=== PATIENT | female | born 1990 | race Two or more races ===

== ENCOUNTER 2017-08-24 18:15 | Emergency (ER) | payer MEDICAID ==
[~2017-08-24] VITALS: Ht 154.9 cm; Wt 111.1 kg
[~2017-08-24 18:15] MED LIST: KEFLEX500 MG ORAL
[2017-08-24 18:33] VITALS: BP 114/70
[2017-08-24] MEDS ORDERED: Ketorolac 30mg Inj IV ONE (18:45)
[2017-08-24 19:14] LABS: BASOPHILS % (AUTO) 0.9 % (0.0-2.0); EOSINOPHILS % (AUTO) 3.7 % (0.0-3.0); HEMATOCRIT 41.3 % (37.0-47.0); HEMOGLOBIN 13.7 G/DL (12.0-16.0); LYMPHOCYTES % (AUTO) 28.2 % (20.0-45.0); MEAN CORPUSCULAR VOLUME 79 FL (80-99); MONOCYTES % (AUTO) 6.3 % (1.0-10.0); NEUTROPHILS % (AUTO) 60.9 % (45.0-75.0); PLATELET COUNT 248 K/UL (150-450); WHITE BLOOD COUNT 8.2 K/UL (4.8-10.8)
[2017-08-24 19:35] VITALS: BP 115/72
[2017-08-24 19:46] LABS: ANION GAP 9 mmol/L (5-15); BLOOD UREA NITROGEN 15 mg/dL (7-18); CALCIUM 8.7 MG/DL (8.5-10.1); CARBON DIOXIDE 24 MMOL/L (21-32); CHLORIDE 105 MMOL/L (98-107); CREATININE 0.7 MG/DL (0.55-1.30); POTASSIUM 4.1 MMOL/L (3.5-5.1); SODIUM 138 MMOL/L (136-145)
[2017-08-24 19:58] LABS: ALANINE AMINOTRANSFERASE 15 U/L (12-78); ALBUMIN 3.3 G/DL (3.4-5.0); ALBUMIN/GLOBULIN RATIO 0.8 (1.0-2.7); ALKALINE PHOSPHATASE 102 U/L (46-116); ASPARTATE AMINO TRANSFERASE 20 U/L (15-37); BILIRUBIN,TOTAL 0.2 MG/DL (0.2-1.0); CKMB 0.9 NG/ML (0.0-3.6); CREATINE KINASE 97 U/L (26-308)
[2017-08-24] MEDS ORDERED: IBUPROFEN600 MG ORAL (20:56)
[2017-08-24 21:00] VITALS: BP_SYST 109; BP_SYST 112; BP_SYST 127; BP_DIAS 66; BP_DIAS 76; BP_DIAS 84
[2017-08-24 21:15] VITALS: BP 112/66
--- NOTE | 2017-08-24 21:55 | Emergency Room Report ---
History of Present Illness General Chief Complaint: Chest Pain Source: Patient Present Illness HPI Patient is a 27-year-old female who presented after increased chest discomfort. Patient noted have increased pain to her right shoulder pain is sharp in nature. Was worse with movement over the shoulder. She denies any fever. She denies any recent trauma. She denies any recent leg pain or swelling. Allergies: Coded Allergies: EGG (Verified Allergy, Unknown, 08/24/17) Patient History Past Medical History: see triage record Last Menstrual Period: 08/03/2017 Now: No Reviewed Nursing Documentation: PMH: Agreed, PSxH: Agreed Nursing Documentation-PMH Past Medical History: No History, Except For History Of Psychiatric Problem: Yes - anxiety Review of Systems All Other Systems: negative except mentioned in HPI Physical Exam Vital Signs Date Time Temp Pulse Resp B/P (MAP) Pulse Ox O2 Delivery O2 Flow Rate FiO2 08/24/17 18:23 97.8 81 16 99/64 96 Room Air 97.9 Sp02 EP Interpretation: reviewed, normal General Appearance: normal inspection, well appearing, no apparent distress, alert, GCS 15, non-toxic Head: atraumatic ENT: normal ENT inspection, hearing grossly normal, normal voice Neck: normal inspection, full range of motion, supple, no bony tend Respiratory: normal inspection, lungs clear, normal breath sounds, no respiratory distress, no retraction, no wheezing, other - right side chest wall tenderness. Brisk pulses Cardiovascular #1: regular rate, rhythm, no edema Gastrointestinal: normal inspection, normal bowel sounds, non tender, soft, no guarding, no hernia Genitourinary: no CVA tenderness Musculoskeletal: normal inspection, back normal, normal range of motion Neurologic: normal inspection, alert, responsive, speech normal Psychiatric: normal inspection, judgement/insight normal, mood/affect normal Skin: normal inspection, normal color, no rash Medical Decision Making Diagnostic Impression: Primary Impression: Chest wall pain Additional Impression: Acute shoulder pain ER Course Patient presented for chest pain. Differential diagnosis included but was not limited to acute coronary syndrome, pulmonary embolism, pneumonia, aortic dissection, shingles, pneumothorax, aortic dissection, esophageal rupture, pericarditis. Because of complexity of patient's case laboratory testing and imaging studies were ordered. EKG interpretation normal sinus rhythm without acute ST or T wave changes. CT the chest was performed which showed no evidence of the aortic dissection or pulmonary embolism. The patient given Toradol for pain. The patient was in place sling.Patient was noted to have brisk pulses to her extremities. The patient's upper extremity. Neurologically intact. The patient had good fine motor movement and normal cap refill. Patient was noted to have no pronator drift. The patient was advised to recheck with her primary care physician as she may need some further workup including MRI. The patient is advised to follow up with primary care doctor in 1-2 days. Patient is advised to return if any worsening condition or if any changes in status that are concerning. This report is dictated with [employer] bench technician software which may occasionally lead to discrepancies related to use of this software. Labs Test 08/24/17 18:50 White Blood Count 8.2 K/UL (4.8-10.8) Red Blood Count 5.20 M/UL (4.20-5.40) Hemoglobin 13.7 G/DL (12.0-16.0) Hematocrit 41.3 % (37.0-47.0) Mean Corpuscular Volume 79 FL (80-99) Mean Corpuscular Hemoglobin 26.4 PG (27.0-31.0) Mean Corpuscular Hemoglobin Concent 33.2 G/DL (32.0-36.0) Red Cell Distribution Width 13.0 % (11.6-14.8) Platelet Count 248 K/UL (150-450) Mean Platelet Volume 6.6 FL (6.5-10.1) Neutrophils (%) (Auto) 60.9 % (45.0-75.0) Lymphocytes (%) (Auto) 28.2 % (20.0-45.0) Monocytes (%) (Auto) 6.3 % (1.0-10.0) Eosinophils (%) (Auto) 3.7 % (0.0-3.0) Basophils (%) (Auto) 0.9 % (0.0-2.0) D-Dimer 0.40 mg/L FEU (0.00-0.49) Urine HCG, Qualitative Negative Sodium Level 138 MMOL/L (136-145) Potassium Level 4.1 MMOL/L (3.5-5.1) Chloride Level 105 MMOL/L (98-107) Carbon Dioxide Level 24 MMOL/L (21-32) Anion Gap 9 mmol/L (5-15) Blood Urea Nitrogen 15 mg/dL (7-18) Creatinine 0.7 MG/DL (0.55-1.30) Estimat Glomerular Filtration Rate > 60 mL/min (>60) Glucose Level 101 MG/DL (74-106) Calcium Level 8.7 MG/DL (8.5-10.1) Total Bilirubin 0.2 MG/DL (0.2-1.0) Aspartate Amino Transf (AST/SGOT) 20 U/L (15-37) Alanine Aminotransferase (ALT/SGPT) 15 U/L (12-78) Alkaline Phosphatase 102 U/L (46-116) Total Creatine Kinase 97 U/L (26-308) Creatine Kinase MB 0.9 NG/ML (0.0-3.6) Creatine Kinase MB Relative Index 0.9 Troponin I 0.000 ng/mL (0.000-0.056) Total Protein 7.7 G/DL (6.4-8.2) Albumin 3.3 G/DL (3.4-5.0) Globulin 4.4 g/dL Albumin/Globulin Ratio 0.8 (1.0-2.7) Lipase 77 U/L (73-393) EKG Diagnostic Results Rate: normal Rhythm: NSR ST Segments: no acute changes ASA given to the pt in ED: No Rhythm Strip Diag. Results EP Interpretation: yes Rhythm: NSR, no PVC's, no ectopy Last Vital Signs Date Time Temp Pulse Resp B/P (MAP) Pulse Ox O2 Delivery O2 Flow Rate FiO2 08/24/17 21:15 97.6 75 16 112/66 100 Room Air 97.6 Status: improved Disposition: HOME, SELF-CARE Condition: Improved Scripts Ibuprofen* (MOTRIN*) 600 Mg Tablet 600 MG ORAL Q8H Y for For Pain, #30 TAB 0 Refills Prov: Erick Lauren 08/24/17 Departure Forms: Return to Work Return to Work in (Days): 2 Patient Instructions: Nonspecific Chest Pain Erick Lauren Aug 24, 2017 21:55
--- NOTE | 2017-08-25 08:14 | Diagnostic Imaging Report ---
Indication: Chest pain, shortness of breath Technique: CT angiography performed utilizing thin section spiral CT and bolus contrast injection. Axial, coronal, and sagittal images were generated. Maximum intensity projections (MIPs) were obtained in the coronal and sagittal planes. Dose: Total Dose Length Product - DLP [address] Dose Index - CTDIvol(s) 13.62, 63.11, 42.7 to mGy. Automated exposure control was utilized for dose reduction. Findings: The heart is normal in size. The mediastinum is unremarkable. The aorta is normal in caliber. There is no evidence of aortic dissection. There are no pulmonary emboli. No significant pulmonary infiltrates are identified. The pleural space is normal. The right hemidiaphragm is elevated. The patient has taken a poor inspiration. Impression: Elevated right hemidiaphragm. Poor inspiration. No evidence of pulmonary emboli or aortic dissection. Otherwise negative. The above report is concordant with preliminary reading by [employer] . The CT scanner at [facility] is accredited by the [employer] and the scans are performed using protocols designed to limit radiation exposure to as low as reasonably achievable to attain images of sufficient resolution adequate for diagnostic evaluation.
--- NOTE | 2017-08-26 16:27 | Cardiology Report ---
APPROVED REPORT EKG Measurement Heart [id number] Normal sinus rhythm Normal ECG
== END 2017-08-24 21:15 | disposition home or self-care (01) ==
LOC: EMR 19:00
DX: R07.89 Other chest pain (principal); M25.511 Pain in right shoulder; Z91.012 Allergy to eggs; F41.9 Anxiety disorder, unspecified
CPT/HCPCS: 36415; 71275; 80053; 81025; 82550; 82553; 83690; 84484; 85025; 85379; 93005; 96374; 99284; J1885; Q9967

== ENCOUNTER 2017-11-03 13:48 | Emergency (ER) | payer MEDICAID ==
[~2017-11-03] VITALS: Ht 152.4 cm; Wt 108.9 kg
[~2017-11-03 13:48] MED LIST changes: +IBUPROFEN600 MG ORAL
[2017-11-03 14:09] VITALS: BP 110/65
[2017-11-03] MEDS ORDERED: Acetaminophen 500mg (ES) tab ORAL ONE (14:30)
[2017-11-03] MEDS ORDERED: Lidocaine 2% Visc 15ml soln ORAL ONE (14:30)
[2017-11-03] MEDS ORDERED: TYLENOL EXTRA500 MG ORAL (14:35)
[2017-11-03] MEDS ORDERED: PROMETHAZINE-C118 M1 ORAL (14:35)
[2017-11-03] MEDS ORDERED: PSEUDOEPHEDRINE30 MG PO (14:35)
--- NOTE | 2017-11-03 14:35 | Emergency Room Report ---
History of Present Illness General Chief Complaint: Flu Like Symptoms Source: Patient Present Illness HPI 27-year-old female patient presents ER complaining of cough and sore throat for the past 2 days. Patient reports cough is with green sputum, denies hemoptysis. Patient reports fever during this time. Patient denies fever acutely in ER. Patient reports taking DayQuil and NyQuil. she reports cough is worse night, reports reproducible and intermittent chest tightness during this time. Patient also complains of earache on the left side. Patient reports feeling ear fullness. Patient denies nausea, vomiting, difficulty breathing. Patient also complains of diarrhea during this time. Patient reports no recent travel outside the [place] or contacts with similar symptoms. Patient reports no blood in stool. Patient reports no dysuria, hematuria. Patient reports no recent periods of immobilization, no recent surgeries. Patient denies being on control medication. denies calf Pain. denies history of asthma or cardiovascular disease. Denies history of PE. Allergies: Coded Allergies: EGG (Verified Allergy, Unknown, 08/24/17) Patient History Past Medical History: see triage record Last Menstrual Period: 10/23/2017 Reviewed Nursing Documentation: PMH: Agreed; PSxH: Agreed Nursing Documentation-PMH Past Medical History: No Stated History Review of Systems All Other Systems: negative except mentioned in HPI Physical Exam Vital Signs Date Time Temp Pulse Resp B/P (MAP) Pulse Ox O2 Delivery O2 Flow Rate FiO2 11/03/17 14:09 98.3 104 18 110/65 96 Room Air 98.2 Sp02 EP Interpretation: reviewed, normal General Appearance: well appearing, no apparent distress, alert, GCS 15, non- toxic Head: normocephalic, atraumatic, other - no mastoid swelling or TTP ENT: hearing grossly normal, normal pharynx, no angioedema, normal voice, TMs + canals normal, uvula midline, moist mucus membranes, other - no pharyngeal erythema, no tonsillar exudates Neck: full range of motion Respiratory: lungs clear, normal breath sounds, no rhonchi, no respiratory distress, no accessory muscle use, no wheezing, speaking full sentences Cardiovascular #1: regular rate, rhythm, no edema Gastrointestinal: non tender, soft, no mass, non-distended, no guarding, no rebound Musculoskeletal: back normal, digits/nails normal, gait/station normal, normal range of motion, non-tender Neurologic: alert, oriented x3, responsive, motor strength/tone normal, sensory intact Psychiatric: mood/affect normal Skin: no rash Lymphatic: no adenopathy Medical Decision Making PA Attestation Dr. Huff is my supervising Physician whom patient management has been discussed with. Diagnostic Impression: Primary Impression: Upper respiratory infection Additional Impression: Diarrhea ER Course Pt presents to ED c/o cough and sore throat. DDX considered but are not limited to influenza, viral URI, pneumonia, strep throat, rhinitis, sinusitis, otitis media. Low suspicion for PE per Well's criteria. Low suspicion for pneumonia, will not order CXR at this time. VITAL SIGNS are WNL, patient is afebrile. Pulse mildly elevated to 104, will monitor. On PE, chest pain likely musculoskeletal in nature secondary to cough due to reproducibility of pain, does not require cardiac workup at this time. Patient instructed to take NSAIDs as needed for pain symptoms. Ordered medication. ER COURSE: Lungs clear to auscultation, no wheezes, rhonci or rales. Likely viral etiology of symptoms. Sore throat likely secondary to cough, ear fullness likely secondary to cough. Will provide treatment. diarrhea likely viral in etiology. patient has moist mucous membranes, no signs of dehydration. BRAT diet: banana, rice, apple sauce, toast. No blood, no recent travel. Stay hydrated. Does not required treatment with antibiotics at this time. Symptomatic treatment. Followup with PCP for further treatment and/or referral as needed. work note provided for 2 days. patient reports feeling better, nontoxic appearing, ambulating independently. ER precautions given. DISCHARGE: -Rx given for Tylenol/Acetaminophen for fever and pain. -Rx given for Promethazine with codeine syrup for cough sx. Checked [facility]ES report , 3 day supply of [place] given one month ago, ok to give meds today. -Rx provided for Sudafed for ear pain At this time pt is stable for d/c to home. Patient is resting comfortably, in no acute distress, nontoxic appearing, talking and laughing. Patient to take medications as instructed Will provide with patient care instructions and any necessary prescriptions. Care plan and follow-up instructions provided. Patient instructed to follow-up with primary care provider in 3 - 5 days. Patient questions asked and answered. Patient reports understanding and agreement to treatment plan. ER precautions given. Patient instructed to return to ER immediately for any new or worsening of symptoms including but not limited to increasing SOB, persistent fever, intractable vomiting. - Please note that this Emergency Department Report was dictated using [employer] sourcer technology software, occasionally this can lead to erroneous entry secondary to interpretation by the dictation equipment. Last Vital Signs Date Time Temp Pulse Resp B/P (MAP) Pulse Ox O2 Delivery O2 Flow Rate FiO2 11/03/17 14:09 98.3 104 18 110/65 96 Room Air 98.2 Disposition: HOME, SELF-CARE Condition: Stable Scripts Pseudoephedrine Hcl* (SUDAFED*) 30 Mg Tablet 30 MG PO Q6H, #24 TAB Prov: Richie Davison 11/03/17 Acetaminophen* (TYLENOL EXTRA STRENGTH*) 500 Mg Tablet 500 MG ORAL Q8H PRN for Prn Headache/Temp > 101, #30 TAB 0 Refills Prov: Richie Davison 11/03/17 Codeine/Promethazine Hcl* (PROMETHAZINE-CODEINE SYRUP*) 118 Ml Syrup 5 ML ORAL Q6H PRN for For Cough, #118 ML 0 Refills Prov: Richie Davison 11/03/17 Patient Instructions: Diarrhea, Adult, [id number], Upper Respiratory Infection, Adult, [id number] Additional Instructions: Followup with primary care provider in 3 -5 days. BRAT diet: bananas, rice, apple sauce, toast. Take medications as directed. Patient questions asked and answered. ER precautions given, patient instructed to return to ER immediately for any new or worsening of symptoms cutting but not limited to chest pain, shortness of breath, intractable vomiting. Richie Davison November 03, 2017 14:35
[2017-11-03 14:49] VITALS: BP 110/65
== END 2017-11-03 14:49 | disposition home or self-care (01) ==
LOC: EMR 14:35
DX: J06.9 Acute upper respiratory infection, unspecified (principal); R19.7 Diarrhea, unspecified; Z91.012 Allergy to eggs
CPT/HCPCS: 99284

== ENCOUNTER 2018-05-21 21:53 | Emergency (ER) | payer MEDICAID ==
[~2018-05-21] VITALS: Ht 154.9 cm; Wt 112.5 kg
[~2018-05-21 21:53] MED LIST changes: +PROMETHAZINE-C118 M1 ORAL; +PSEUDOEPHEDRINE30 MG PO; +TYLENOL EXTRA500 MG ORAL
[2018-05-21] MEDS ORDERED: Lidocaine 2% Visc 15ml soln ORAL ONE (23:15)
[2018-05-21] MEDS ORDERED: Dicyclomine HCl 10mg/5ml oral soln ORAL ONE (23:15)
[2018-05-22 00:05] LABS: BASOPHILS % (AUTO) 0.8 % (0.0-2.0); EOSINOPHILS % (AUTO) 2.6 % (0.0-3.0); HEMATOCRIT 43.3 % (37.0-47.0); HEMOGLOBIN 14.6 G/DL (12.0-16.0); LYMPHOCYTES % (AUTO) 17.4 % (20.0-45.0); MEAN CORPUSCULAR VOLUME 77 FL (80-99); MONOCYTES % (AUTO) 4.6 % (1.0-10.0); NEUTROPHILS % (AUTO) 74.6 % (45.0-75.0); PLATELET COUNT 262 K/UL (150-450); RED CELL DISTRIBUTION WIDTH 12.8 % (11.6-14.8)
[2018-05-22 00:16] LABS: APPEARANCE,URINE CLOUDY; BILIRUBIN, URINE NEGATIVE (NEGATIVE); GLUCOSE, URINE (UA) NEGATIVE (NEGATIVE); KETONES,URINE NEGATIVE (NEGATIVE); LEUKOCYTE ESTERASE ,URINE 3+ (NEGATIVE); NITRITE,URINE NEGATIVE (NEGATIVE); PH,URINE 5 (4.5-8.0); PROTEIN,URINE 1+ (NEGATIVE); UROBILINOGEN,URINE 1 MG/DL (0.0-1.0)
[2018-05-22 00:20] LABS: ANION GAP 13 mmol/L (5-15); BLOOD UREA NITROGEN 15 mg/dL (7-18); CARBON DIOXIDE 22 MMOL/L (21-32); CHLORIDE 102 MMOL/L (98-107); CREATININE 0.7 MG/DL (0.55-1.30); POTASSIUM 3.8 MMOL/L (3.5-5.1); SODIUM 137 MMOL/L (136-145)
[2018-05-22 00:26] LABS: ALANINE AMINOTRANSFERASE 16 U/L (12-78); ALBUMIN 3.4 G/DL (3.4-5.0); ALBUMIN/GLOBULIN RATIO 0.6 (1.0-2.7); ALKALINE PHOSPHATASE 107 U/L (46-116); ASPARTATE AMINO TRANSFERASE 18 U/L (15-37); BILIRUBIN,TOTAL 0.3 MG/DL (0.2-1.0)
[2018-05-22 00:39] LABS: COLOR,URINE YELLOW
[2018-05-22] MEDS ORDERED: Ketorolac 30mg Inj IV ONE (00:45)
[2018-05-22] MEDS ORDERED: CEPHALEXIN500 MG ORAL (01:06)
[2018-05-22] MEDS ORDERED: IBUPROFEN600 MG ORAL (01:06)
[2018-05-22] MEDS ORDERED: cefTRIAXone 1 GM in NS 55 ML IVPB ONE (01:15)
[2018-05-22 01:54] VITALS: BP 116/69
--- NOTE | 2018-05-22 05:40 | Emergency Room Report ---
History of Present Illness General Chief Complaint: Nausea, Vomiting, and Diarrhea Source: Patient Present Illness HPI Patient is a 27-year-old female who presented after increased the nausea and vomiting as well as increased dysuria. Patient gradual onset of symptoms. She reports having increased frequency of urination with small amounts of urine. She was having increased diarrhea. She denies any fever. She reports having superpubic abdominal pain. Allergies: Coded Allergies: EGG (Verified Allergy, Unknown, 08/24/17) Patient History Past Medical History: see triage record Last Menstrual Period: unk Now: No : 1 Para: 1 Reviewed Nursing Documentation: PMH: Agreed; PSxH: Agreed Nursing Documentation-PMH Past Medical History: No Stated History Review of Systems All Other Systems: negative except mentioned in HPI Physical Exam Vital Signs Date Time Temp Pulse Resp B/P (MAP) Pulse Ox O2 Delivery O2 Flow Rate FiO2 05/21/18 21:58 98.2 113 16 116/69 97 Room Air Sp02 EP Interpretation: reviewed, normal General Appearance: normal inspection, well appearing, no apparent distress, alert, GCS 15 Head: atraumatic ENT: normal ENT inspection, hearing grossly normal, normal voice Neck: normal inspection, full range of motion, supple, no bony tend Respiratory: normal inspection, lungs clear, normal breath sounds, no respiratory distress, no retraction, no wheezing Cardiovascular #1: regular rate, rhythm, no edema Gastrointestinal: normal inspection, normal bowel sounds, non tender, soft, no guarding, no hernia Genitourinary: no CVA tenderness Musculoskeletal: normal inspection, back normal, normal range of motion Neurologic: normal inspection, alert, oriented x3, responsive, chief dietitian III-XII nml as tested, speech normal Psychiatric: normal inspection, judgement/insight normal, mood/affect normal Skin: normal inspection, normal color, no rash Medical Decision Making Diagnostic Impression: Primary Impression: Urinary tract infection ER Course Patient presented for abdominal pain. Differential diagnoses included ischemic bowel, appendicitis, perforated viscus, abdominal aortic aneurysm, inferior myocardial infarction, viral gastroenteritis Because of complexity of patient's case laboratory testing and imaging studies were ordered.The laboratory testing was notable for evidence of urinary infection. Patient was given IV fluids as well as IV antibiotics.The patient been having some improvement in her symptoms. Patient is advised to recheck in the next few days. Labs Test 05/21/18 23:00 05/21/18 23:51 Urine Color Yellow Urine Appearance Cloudy Urine pH 5 (4.5-8.0) Urine Specific [place] 1.015 (1.005-1.035) Urine Protein 1+ (NEGATIVE) Urine Glucose (UA) Negative (NEGATIVE) Urine Ketones Negative (NEGATIVE) Urine Blood 1+ (NEGATIVE) Urine Nitrite Negative (NEGATIVE) Urine Bilirubin Negative (NEGATIVE) Urine Urobilinogen 1 MG/DL (0.0-1.0) Urine Leukocyte Esterase 3+ (NEGATIVE) Urine RBC 2-4 /HPF (0 - 2) Urine WBC Tntc /HPF (0 - 2) Urine Squamous Epithelial Cells Many /LPF (NONE/OCC) Urine Bacteria Moderate /HPF (NONE) Urine HCG, Qualitative Negative (NEGATIVE) White Blood Count 9.0 K/UL (4.8-10.8) Red Blood Count 5.60 M/UL (4.20-5.40) Hemoglobin 14.6 G/DL (12.0-16.0) Hematocrit 43.3 % (37.0-47.0) Mean Corpuscular Volume 77 FL (80-99) Mean Corpuscular Hemoglobin 26.0 PG (27.0-31.0) Mean Corpuscular Hemoglobin Concent 33.6 G/DL (32.0-36.0) Red Cell Distribution Width 12.8 % (11.6-14.8) Platelet Count 262 K/UL (150-450) Mean Platelet Volume 6.1 FL (6.5-10.1) Neutrophils (%) (Auto) 74.6 % (45.0-75.0) Lymphocytes (%) (Auto) 17.4 % (20.0-45.0) Monocytes (%) (Auto) 4.6 % (1.0-10.0) Eosinophils (%) (Auto) 2.6 % (0.0-3.0) Basophils (%) (Auto) 0.8 % (0.0-2.0) Sodium Level 137 MMOL/L (136-145) Potassium Level 3.8 MMOL/L (3.5-5.1) Chloride Level 102 MMOL/L (98-107) Carbon Dioxide Level 22 MMOL/L (21-32) Anion Gap 13 mmol/L (5-15) Blood Urea Nitrogen 15 mg/dL (7-18) Creatinine 0.7 MG/DL (0.55-1.30) Estimat Glomerular Filtration Rate > 60 mL/min (>60) Glucose Level 133 MG/DL (74-106) Calcium Level 9.0 MG/DL (8.5-10.1) Total Bilirubin 0.3 MG/DL (0.2-1.0) Aspartate Amino Transf (AST/SGOT) 18 U/L (15-37) Alanine Aminotransferase (ALT/SGPT) 16 U/L (12-78) Alkaline Phosphatase 107 U/L (46-116) Total Protein 8.8 G/DL (6.4-8.2) Albumin 3.4 G/DL (3.4-5.0) Globulin 5.4 g/dL Albumin/Globulin Ratio 0.6 (1.0-2.7) Last Vital Signs Date Time Temp Pulse Resp B/P (MAP) Pulse Ox O2 Delivery O2 Flow Rate FiO2 05/22/18 01:54 98.3 100 16 116/69 97 Room Air Status: improved Disposition: HOME, SELF-CARE Condition: Stable Scripts Ibuprofen* (MOTRIN*) 600 Mg Tablet 600 MG ORAL Q8H PRN for For Pain, #30 TAB 0 Refills Prov: Erick Lauren MD 05/22/18 Cephalexin* (KEFLEX*) 500 Mg Capsule 500 MG ORAL EVERY 6 HOURS, #28 CAP Prov: Erick Lauren MD 05/22/18 Patient Instructions: Urinary Tract Infection Erick Lauren MD May 22, 2018 05:40
== END 2018-05-22 01:54 | disposition home or self-care (01) ==
LOC: EMR 22:48
DX: N39.0 Urinary tract infection, site not specified (principal); R30.0 Dysuria
CPT/HCPCS: 36415; 80053; 81003; 81025; 85025; 87086; 96361; 96365; 96375; 99284; J0696; J1885

== ENCOUNTER 2019-01-05 16:59 | Emergency (ER) | payer MEDICAID ==
[~2019-01-05] VITALS: Ht 154.9 cm; Wt 108.9 kg
[~2019-01-05 16:59] MED LIST changes: +CEPHALEXIN500 MG ORAL
[2019-01-05] MEDS ORDERED: NKM (17:06)
--- NOTE | 2019-01-05 17:12 | NUR ---
ED Nurse Note: Pt came in from home due to lower abdominal pressure like pain and "passed a blood clot this morning". Pt is 6 week , found out 2 weeks ago through vaginal US. Pain 5/10 anna. AOx4, VSS anna. Will cont to monitor.
--- NOTE | 2019-01-05 17:32 | Emergency Room Report ---
History of Present Illness General Chief Complaint: Complications Source: Patient Present Illness HPI The patient is a 28-year-old female G2, P1 at approximately 8 weeks gestation by dates presenting for vaginal bleeding. She noticed some vaginal cramping as well as a blood clot 3 days prior. She has not had bleeding since. She denies any pain at this time. She states that she had a vaginal ultrasound done 2 weeks prior which showed a viable intrauterine . She does admit to having nausea and vomiting which she also had for her first . She denies any other symptoms including fever, chills, dysuria, back pain Allergies: Coded Allergies: EGG (Verified Allergy, Unknown, 08/24/17) Patient History Past Medical History: see triage record Pertinent Family History: none Now: Yes - 8 weeks Reviewed Nursing Documentation: PMH: Agreed; PSxH: Agreed Nursing Documentation-PMH Past Medical History: No Stated History Review of Systems All Other Systems: negative except mentioned in HPI Physical Exam Vital Signs Date Time Temp Pulse Resp B/P (MAP) Pulse Ox O2 Delivery O2 Flow Rate FiO2 01/05/19 17:02 98.4 80 17 120/70 (87) 99 Room Air Sp02 EP Interpretation: reviewed, normal General Appearance: no apparent distress, alert, GCS 15, non-toxic Head: normocephalic, atraumatic Eyes: bilateral eye normal inspection, bilateral eye PERRL ENT: hearing grossly normal, normal pharynx, no angioedema, normal voice Neck: full range of motion, supple/symm/no masses Respiratory: chest non-tender, lungs clear, normal breath sounds, speaking full sentences Cardiovascular #1: regular rate, rhythm, no edema Gastrointestinal: soft, non-distended, tenderness - suprapubic Genitourinary: normal inspection, no CVA tenderness Musculoskeletal: back normal, gait/station normal, normal range of motion, non- tender Neurologic: alert, oriented x3, responsive, motor strength/tone normal, sensory intact, speech normal Skin: no rash Medical Decision Making PA Attestation Dr. Ng is my supervising physician. Patient management was discussed with my supervising physician Diagnostic Impression: Primary Impression: Threatened miscarriage Additional Impression: Urinary tract infection Qualified Codes: N30.01 - Acute cystitis with hematuria ER Course Patient is a 28-year-old female at approximately 8 weeks gestation presenting for abdominal pain and discharged blood clot Differential diagnoses considered include but not limited to Early , threatened , incomplete , complete , ectopic , hemorrhagic cyst PE: Afebrile. NAD Abd is soft. TTP over the suprapubic region No CVA tenderness Blood work unremarkable. Urine is consistent with urinary tract infection OB ultrasound shows a single IUP at approximately 9 weeks. heart tones 168 bpm The patient was advised this is a threatened miscarriage and needs to follow-up with [facility] as soon as possible. She is given first dose of antibiotics here and discharged with the same. ER precautions given Laboratory Tests Test 01/05/19 17:30 White Blood Count 7.6 K/UL (4.8-10.8) Red Blood Count 4.82 M/UL (4.20-5.40) Hemoglobin 12.8 G/DL (12.0-16.0) Hematocrit 38.5 % (37.0-47.0) Mean Corpuscular Volume 80 FL (80-99) Mean Corpuscular Hemoglobin 26.4 PG (27.0-31.0) L Mean Corpuscular Hemoglobin Concent 33.1 G/DL (32.0-36.0) Red Cell Distribution Width 12.8 % (11.6-14.8) Platelet Count 265 K/UL (150-450) Mean Platelet Volume 5.8 FL (6.5-10.1) L Neutrophils (%) (Auto) 66.0 % (45.0-75.0) Lymphocytes (%) (Auto) 23.7 % (20.0-45.0) Monocytes (%) (Auto) 6.2 % (1.0-10.0) Eosinophils (%) (Auto) 2.8 % (0.0-3.0) Basophils (%) (Auto) 1.3 % (0.0-2.0) Prothrombin Time 10.2 SEC (9.30-11.50) Prothrombin Time INR 1.0 (0.9-1.1) PTT 29 SEC (23-33) Urine Color Pale yellow Urine Appearance Cloudy Urine pH 8 (4.5-8.0) Urine Specific [place] 1.020 (1.005-1.035) Urine Protein Negative (NEGATIVE) Urine Glucose (UA) Negative (NEGATIVE) Urine Ketones Negative (NEGATIVE) Urine Blood 3+ (NEGATIVE) H Urine Nitrite Negative (NEGATIVE) Urine Bilirubin Negative (NEGATIVE) Urine Urobilinogen 1 MG/DL (0.0-1.0) H Urine Leukocyte Esterase 3+ (NEGATIVE) H Urine RBC 2-4 /HPF (0 - 2) H Urine WBC 15-20 /HPF (0 - 2) H Urine Squamous Epithelial Cells Moderate /LPF (NONE/OCC) H Urine Amorphous Sediment Many /LPF (NONE) H Urine Bacteria Moderate /HPF (NONE) H Sodium Level 138 MMOL/L (136-145) Potassium Level 3.6 MMOL/L (3.5-5.1) Chloride Level 104 MMOL/L (98-107) Carbon Dioxide Level 22 MMOL/L (21-32) Anion Gap 12 mmol/L (5-15) Blood Urea Nitrogen 7 mg/dL (7-18) Creatinine 0.6 MG/DL (0.55-1.30) Estimate Glomerular Filtration Rate > 60 mL/min (>60) Glucose Level 151 MG/DL (74-106) H Calcium Level 9.0 MG/DL (8.5-10.1) Total Bilirubin 0.2 MG/DL (0.2-1.0) Aspartate Amino Transferase (AST) 14 U/L (15-37) L Alanine Aminotransferase (ALT) 17 U/L (12-78) Alkaline Phosphatase 85 U/L (46-116) Total Protein 7.2 G/DL (6.4-8.2) Albumin 3.0 G/DL (3.4-5.0) L Globulin 4.2 g/dL Albumin/Globulin Ratio 0.7 (1.0-2.7) L Human Chorionic Gonadotropin, Quant 46503 mIU/mL (1-6) H Lab Results Impression Consistent with UTI CT/MRI/US Diagnostic Results CT/MRI/US Diagnostic Results : Imaging Test Ordered: OB US Impression Single IUP 9 weeks 0 days. heart tones 1 6 8 bpm Last Vital Signs Date Time Temp Pulse Resp B/P (MAP) Pulse Ox O2 Delivery O2 Flow Rate FiO2 01/05/19 17:02 98.4 80 17 120/70 (87) 99 Room Air Status: improved Disposition: HOME, SELF-CARE Condition: Improved Scripts Nitrofurantoin Monohyd/M-Cryst* (MACROBID 100 MG*) 100 Mg Capsule 100 MG ORAL EVERY 12 HOURS, #13 CAP Prov: JONATAN GAUTAM 01/05/19 JONATAN GAUTAM Jan 05, 2019 17:32
[2019-01-05 17:52] LABS: BASOPHILS % (AUTO) 1.3 % (0.0-2.0); EOSINOPHILS % (AUTO) 2.8 % (0.0-3.0); HEMATOCRIT 38.5 % (37.0-47.0); HEMOGLOBIN 12.8 G/DL (12.0-16.0); LYMPHOCYTES % (AUTO) 23.7 % (20.0-45.0); MEAN CORPUSCULAR VOLUME 80 FL (80-99); MONOCYTES % (AUTO) 6.2 % (1.0-10.0); PLATELET COUNT 265 K/UL (150-450); RED BLOOD COUNT 4.82 M/UL (4.20-5.40); RED CELL DISTRIBUTION WIDTH 12.8 % (11.6-14.8); WHITE BLOOD COUNT 7.6 K/UL (4.8-10.8)
[2019-01-05 17:56] LABS: BILIRUBIN, URINE NEGATIVE (NEGATIVE); COLOR,URINE PALE YELLOW; GLUCOSE, URINE (UA) NEGATIVE (NEGATIVE); KETONES,URINE NEGATIVE (NEGATIVE); LEUKOCYTE ESTERASE ,URINE 3+ (NEGATIVE); NITRITE,URINE NEGATIVE (NEGATIVE); PH,URINE 8 (4.5-8.0); PROTEIN,URINE NEGATIVE (NEGATIVE); UROBILINOGEN,URINE 1 MG/DL (0.0-1.0)
[2019-01-05 18:04] LABS: ANION GAP 12 mmol/L (5-15); BLOOD UREA NITROGEN 7 mg/dL (7-18); CARBON DIOXIDE 22 MMOL/L (21-32); CHLORIDE 104 MMOL/L (98-107); CREATININE 0.6 MG/DL (0.55-1.30); POTASSIUM 3.6 MMOL/L (3.5-5.1); SODIUM 138 MMOL/L (136-145)
[2019-01-05 18:06] LABS: APPEARANCE,URINE CLOUDY
[2019-01-05 18:09] LABS: ALANINE AMINOTRANSFERASE 17 U/L (12-78); ALBUMIN/GLOBULIN RATIO 0.7 (1.0-2.7); ALKALINE PHOSPHATASE 85 U/L (46-116); ASPARTATE AMINO TRANSFERASE 14 U/L (15-37); BILIRUBIN,TOTAL 0.2 MG/DL (0.2-1.0)
[2019-01-05] MEDS ORDERED: NITROFURANTOIN100 M2 ORAL (19:40)
[2019-01-05 19:54] VITALS: BP 120/70
--- NOTE | 2019-01-05 19:54 | NUR ---
ER DISCHARGE NOTE: Patient is cleared to be discharged per ERMD, pt is aox4, on room air, with stable vital signs. pt was given dc and prescription instructions, pt was able to verbalize understanding, pt id band and iv site removed without complications. pt is able to ambulate with steady gait. pt took all belongings.
--- NOTE | 2019-01-06 12:05 | Diagnostic Imaging Report ---
Indication: Vaginal bleeding, positive test Technique: Transabdominal and transvaginal images of the pelvis. Comparison: none Findings: Uterus measures 12.5 cm length by 6.3 cm AP. Within the endometrium, there is a gestational sac. This contains a pole with a crown-rump length of 24 mm, corresponding to an estimated gestational age of 9 weeks one day. There is positive heart activity, heart rate 168 bpm. No subchorionic hemorrhage demonstrated. No myometrial abnormality. Right ovary measures 3.9 cm in length. Left ovary measures 3.6 cm in length. There is a cervical nabothian cyst incidentally noted. Note that Doppler interrogation of the ovaries is incomplete, but lack of enlargement makes torsion unlikely Impression: 9 week one day, by crown-rump length measurement, single live intrauterine . No unusual features
== END 2019-01-05 19:54 | disposition home or self-care (01) ==
LOC: EMR 17:39
DX: O20.0 Threatened abortion (principal); Z3A.09 9 weeks gestation of pregnancy; O23.41 Unspecified infection of urinary tract in pregnancy, first trimester; N30.01 Acute cystitis with hematuria
CPT/HCPCS: 36415; 76801; 76830; 80053; 81003; 84702; 85025; 85610; 85730; 86850; 86900; 86901; 87086; 99284

== ENCOUNTER 2019-03-03 15:15 | Emergency (ER) | payer MEDICAID ==
[~2019-03-03] VITALS: Ht 154.9 cm; Wt 111.6 kg
[~2019-03-03 15:15] MED LIST changes: +NITROFURANTOIN100 M2 ORAL; +NKM
--- NOTE | 2019-03-03 15:24 | NUR ---
ED Nurse Note: PT states she just voided and unable to give sample now
--- NOTE | 2019-03-03 15:25 | NUR ---
ED Nurse Note: Patient walked into ED from home accompanied by her c/o lower abdominal cramping pain and headache since this morning. patient is alert awake x4 ambulatory steady gait, breathing unlabored and even, no nausea or vomiting at this time. patient denies any vaginal bleeding or fluid leaking.
[2019-03-03 16:14] LABS: APPEARANCE,URINE CLEAR; BILIRUBIN, URINE NEGATIVE (NEGATIVE); GLUCOSE, URINE (UA) 2+ (NEGATIVE); KETONES,URINE 1+ (NEGATIVE); LEUKOCYTE ESTERASE ,URINE 3+ (NEGATIVE); NITRITE,URINE NEGATIVE (NEGATIVE); PH,URINE 5 (4.5-8.0); PROTEIN,URINE NEGATIVE (NEGATIVE); UROBILINOGEN,URINE NORMAL MG/DL (0.0-1.0)
[2019-03-03 16:19] LABS: COLOR,URINE YELLOW
[2019-03-03 16:20] LABS: BASOPHILS % (AUTO) 0.5 % (0.0-2.0); HEMATOCRIT 37.2 % (37.0-47.0); HEMOGLOBIN 12.8 G/DL (12.0-16.0); LYMPHOCYTES % (AUTO) 15.5 % (20.0-45.0); MEAN CORPUSCULAR VOLUME 76 FL (80-99); MONOCYTES % (AUTO) 3.7 % (1.0-10.0); NEUTROPHILS % (AUTO) 79.4 % (45.0-75.0); PLATELET COUNT 237 K/UL (150-450); RED CELL DISTRIBUTION WIDTH 12.7 % (11.6-14.8); WHITE BLOOD COUNT 9.6 K/UL (4.8-10.8)
[2019-03-03 16:21] LABS: ANION GAP 15 mmol/L (5-15); BLOOD UREA NITROGEN 5 mg/dL (7-18); CALCIUM 9.2 MG/DL (8.5-10.1); CARBON DIOXIDE 19 MMOL/L (21-32); CHLORIDE 107 MMOL/L (98-107); CREATININE 0.5 MG/DL (0.55-1.30); POTASSIUM 3.6 MMOL/L (3.5-5.1); SODIUM 141 MMOL/L (136-145)
[2019-03-03 16:25] LABS: ALANINE AMINOTRANSFERASE 15 U/L (12-78); ALBUMIN 2.8 G/DL (3.4-5.0); ALBUMIN/GLOBULIN RATIO 0.6 (1.0-2.7); ALKALINE PHOSPHATASE 80 U/L (46-116); ASPARTATE AMINO TRANSFERASE 9 U/L (15-37); BILIRUBIN,TOTAL 0.2 MG/DL (0.2-1.0)
--- NOTE | 2019-03-03 17:32 | Emergency Room Report ---
History of Present Illness General Chief Complaint: Complications Source: Patient Present Illness HPI 28-year-old female presents to the emergency department complaining of intermittent episodes of 10 out of 10 severity lower midline abdominal cramping sensations since last night. Patient reports being 15 weeks she states she is with previous normal vaginal delivery without complications. Patient denies complications with her thus far other than having hyperemesis gravidarum. Patient reports persistent nausea and vomiting. Patient denies fevers or chills she reports urinary frequency she denies dysuria or hematuria. Patient denies vaginal bleeding or discharge. Patient reports she has had multiple ultrasounds recently and IUP has been established. Her most recent ultrasound was performed 2 weeks ago. Patient states she is not currently taking vitamins. She denies trauma or fall she denies recent travel or ill contacts with similar symptoms. No other aggravating or relieving factors at this time. Allergies: Coded Allergies: EGG (Verified Allergy, Unknown, 08/24/17) Patient History Past Medical History: see triage record Past Surgical History: none Pertinent Family History: none Last Menstrual Period: 5-7-19--15 WEEKS Now: Yes : 2 Para: 1 Immunizations: UTD Reviewed Nursing Documentation: PMH: Agreed; PSxH: Agreed Nursing Documentation-PMH Past Medical History: No Stated History Review of Systems All Other Systems: negative except mentioned in HPI Physical Exam Vital Signs Date Time Temp Pulse Resp B/P (MAP) Pulse Ox O2 Delivery O2 Flow Rate FiO2 03/03/19 15:19 97.9 111 20 103/63 (76) 97 Room Air Medical Decision Making PA Attestation Dr. Lew Is my supervising Physician whom patient management has been discussed with. Diagnostic Impression: Primary Impression: UTI Additional Impression: Threatened miscarriage ER Course 28-year-old female presents to the emergency department complaining of intermittent episodes of 10 out of 10 severity lower midline abdominal cramping sensations since last night. Patient reports being 15 weeks she states she is with previous normal vaginal delivery without complications. Patient denies complications with her thus far other than having hyperemesis gravidarum. Patient reports persistent nausea and vomiting. Patient denies fevers or chills she reports urinary frequency she denies dysuria or hematuria. Patient denies vaginal bleeding or discharge. Patient reports she has had multiple ultrasounds recently and IUP has been established. Her most recent ultrasound was performed 2 weeks ago. Patient states she is not currently taking vitamins. She denies trauma or fall she denies recent travel or ill contacts with similar symptoms. No other aggravating or relieving factors at this time. Ddx considered but are not limited to: UTI, GE, Fibroid, ectopic , Fibroid, Spontaneous , Vital signs: are WNL, pt. is afebrile H&PE are most consistent with: Threatened and/ or possible UTI-- patient is not currently vomiting she appears in no acute distress and nontoxic in appearance. Patient states at the moment she is not experiencing the cramping sensation. ORDERS: -UA: Elevation and inflammatory markers and presence of moderate amount of bacteria consistent with urinary tract infection -serum Hcg Quant: 15928 - CBC: unremarkable -CMP: unremarkable -Lipase: WNL --Bedside Doppler performed and there was a heart rate of 157. --Bedside ultrasound performed by attending physician: No acute processes. ED INTERVENTIONS: None at this time. DISCHARGE: At this time pt. is stable for d/c to home. Will provide printed patient care instructions, and any necessary prescriptions. Care plan and follow up instructions have been discussed with the patient prior to discharge. Labs Test 03/03/19 15:48 White Blood Count 9.6 K/UL (4.8-10.8) Red Blood Count 4.90 M/UL (4.20-5.40) Hemoglobin 12.8 G/DL (12.0-16.0) Hematocrit 37.2 % (37.0-47.0) Mean Corpuscular Volume 76 FL (80-99) Mean Corpuscular Hemoglobin 26.0 PG (27.0-31.0) Mean Corpuscular Hemoglobin Concent 34.3 G/DL (32.0-36.0) Red Cell Distribution Width 12.7 % (11.6-14.8) Platelet Count 237 K/UL (150-450) Mean Platelet Volume 5.6 FL (6.5-10.1) Neutrophils (%) (Auto) 79.4 % (45.0-75.0) Lymphocytes (%) (Auto) 15.5 % (20.0-45.0) Monocytes (%) (Auto) 3.7 % (1.0-10.0) Eosinophils (%) (Auto) 1.0 % (0.0-3.0) Basophils (%) (Auto) 0.5 % (0.0-2.0) Urine Color Yellow Urine Appearance Clear Urine pH 5 (4.5-8.0) Urine Specific [place] 1.020 (1.005-1.035) Urine Protein Negative (NEGATIVE) Urine Glucose (UA) 2+ (NEGATIVE) Urine Ketones 1+ (NEGATIVE) Urine Blood Negative (NEGATIVE) Urine Nitrite Negative (NEGATIVE) Urine Bilirubin Negative (NEGATIVE) Urine Urobilinogen Normal MG/DL (0.0-1.0) Urine Leukocyte Esterase 3+ (NEGATIVE) Urine RBC 2-4 /HPF (0 - 2) Urine WBC 5-10 /HPF (0 - 2) Urine Squamous Epithelial Cells Moderate /LPF (NONE/OCC) Urine Bacteria Moderate /HPF (NONE) Sodium Level 141 MMOL/L (136-145) Potassium Level 3.6 MMOL/L (3.5-5.1) Chloride Level 107 MMOL/L (98-107) Carbon Dioxide Level 19 MMOL/L (21-32) Anion Gap 15 mmol/L (5-15) Blood Urea Nitrogen 5 mg/dL (7-18) Creatinine 0.5 MG/DL (0.55-1.30) Estimat Glomerular Filtration Rate > 60 mL/min (>60) Glucose Level 130 MG/DL (74-106) Calcium Level 9.2 MG/DL (8.5-10.1) Total Bilirubin 0.2 MG/DL (0.2-1.0) Aspartate Amino Transf (AST/SGOT) 9 U/L (15-37) Alanine Aminotransferase (ALT/SGPT) 15 U/L (12-78) Alkaline Phosphatase 80 U/L (46-116) Total Protein 7.3 G/DL (6.4-8.2) Albumin 2.8 G/DL (3.4-5.0) Globulin 4.5 g/dL Albumin/Globulin Ratio 0.6 (1.0-2.7) Lipase 76 U/L (73-393) Human Chorionic Gonadotropin, Quant 16107 mIU/mL (1-6) Last Vital Signs Date Time Temp Pulse Resp B/P (MAP) Pulse Ox O2 Delivery O2 Flow Rate FiO2 03/03/19 15:19 97.9 111 20 103/63 (76) 97 Room Air Disposition: HOME, SELF-CARE Condition: Stable Scripts Metoclopramide Hcl* (REGLAN*) 10 Mg Tablet 10 MG ORAL THREE TIMES A DAY PRN for Nausea & Vomiting, #6 TAB Prov: Alicia Tomlinson 03/03/19 Vit #91/Fe Fum/Fa/Dha ( + DHA COMBO PACK) 1 Each Combo..pkg 1 EACH PO DAILY, #1 PACK 2 Refills Prov: Alicia Tomlinson 03/03/19 Nitrofurantoin Monohyd/M-Cryst* (MACROBID 100 MG*) 100 Mg Capsule 100 MG ORAL EVERY 12 HOURS for 5 Days, #10 CAP Prov: Alicia Tomlinson 03/03/19 Referrals: NON PHYSICIAN (PCP) Patient Instructions: Threatened Miscarriage, [id number], Urinary Tract Infection, [id number] Additional Instructions: Take medications as directed. [place] Hcg Quant was 13340 today Follow up with a OBGYN within 3 days, even if your symptoms have resolved. Return sooner to ED if new symptoms occur, or current symptoms become worse. - Please note that this Emergency Department Report was dictated using [employer] documentation [employer] technology software, occasionally this can lead to erroneous entry secondary to interpretation by the dictation equipment. Alicia Tomlinson Mar 03, 2019 17:32
[2019-03-03] MEDS ORDERED: NITROFURANTOIN100 M2 ORAL (17:35)
[2019-03-03] MEDS ORDERED: REGLAN10 MG ORAL (17:35)
[2019-03-03] MEDS ORDERED: PRENATAL + DHA1 EAC1 PO (17:35)
[2019-03-03 17:56] VITALS: BP 103/63
--- NOTE | 2019-03-03 17:58 | NUR ---
ER DISCHARGE NOTE: Patient is cleared to be discharged per GEOFF LAWLER , pt is aox4, on room air, with stable vital signs. pt was given dc and prescription instructions, pt was able to verbalize understanding, pt id band removed without complications. pt is able to ambulate with steady gait. pt took all belongings.
== END 2019-03-03 17:56 | disposition home or self-care (01) ==
LOC: EMR 16:00
DX: O23.42 Unspecified infection of urinary tract in pregnancy, second trimester (principal); O20.0 Threatened abortion; Z3A.15 15 weeks gestation of pregnancy
CPT/HCPCS: 36415; 80053; 81003; 83690; 84702; 85025; 87086; 99283